=== PATIENT | female | born 1945 | race Caucasian/White ===

== ENCOUNTER 2020-09-01 19:04 | Observation (INO) ==
[2020-09-01 19:55] LABS: Hematocrit 21.8 % (35.3-44.9); Hemoglobin 6.9 g/dL (11.5-15.4); INR 1.3; Mean Corpuscular HGB Conc 31.7 g/dL (31.6-35.5); Mean Corpuscular Hemoglobin 32.4 pg (28.0-33.3); Mean Corpuscular Volume 102.3 fL (83.0-100.0); Mean Platelet Volume 12.8 fL (9.4-12.4); Prothrombin Time 14.6 Seconds (9.4-12.1); Red Blood Count 2.13 M/mcL (3.82-4.97); Red Cell Distribution Width 15.2 % (11.5-14.5); White Blood Count 4.3 K/mcL (4.3-11.1)
[2020-09-01 19:56] LABS: Platelet Count 58 K/mcL (140-400)
[2020-09-01 20:07] LABS: Calcium 7.5 mg/dL (8.6-10.3); Potassium 3.5 mEq/L (3.5-5.1)
[2020-09-01 20:25] LABS: Anisocytosis 2+ (Not Present); Lymphocytes # 0.4 K/mcL (0.6-4.6); Monocytes # 0.5 K/mcL (0.0-1.3); Neutrophils # 3.4 K/mcL (1.6-8.9)
[2020-09-01 20:26] LABS: Basophilic Stippling 1+ (Not Present); Dohle Bodies Present (Not Present); Hypochromasia Present (Not Present); Macrocytosis Present (Not Present); Platelet Estimate Marked Decrease (Normal); Poikilocytosis 1+ (Not Present); Polychromasia 1+ (Not Present); Toxic Granulation Present (Not Present); Toxic Vacuolation Present (Not Present)
[2020-09-01 20:29] LABS: Large Platelets Present (Not Present)
[2020-09-01] MEDS ORDERED: Naloxone 0.4 MG/ML INJ IVP PRN (22:48)
[2020-09-01] MEDS ORDERED: Ondansetron 4 MG/2 ML VIAL IVP PRN (22:48)
[2020-09-01] MEDS ORDERED: Furosemide 20 MG/2 ML VIAL IVP PRN (23:03)
[2020-09-01] MEDS ORDERED: 0.9 % Sodium Chloride 250 ML ONE (23:15)
[2020-09-02] MEDS ORDERED: 0.9 % Sodium Chloride 250 ML ONE (03:30)
[2020-09-02 04:33] LABS: Bilirubin,Urine Negative (Negative); Blood,Urine Trace-lysed (Negative); Clarity,Urine Slightly Cloudy (Clear); Color,Urine Yellow (Yellow); Glucose,Urine (UA) Normal (Normal); Ketones,Urine Negative (Negative); Leukocyte Esterase,Urine Negative (Negative); Nitrite,Urine Negative (Negative); PH,Urine 5.5 pH Units (5.0-8.0); Protein,Urine 100 mg/dL (Neg-Trace); Urobilinogen,Urine Normal (Normal)
[2020-09-02 05:07] LABS: Bacteria,Urine Moderate per hpf (None-Few); Granular Casts,Urine Few per lpf (None Seen); Hyaline Casts,Urine Few per lpf (None Seen); Mucus,Urine Few per lpf (None-Few); RBC,Urine 0-3 per hpf (0-3); WBC,Urine 0-3 per hpf (0-3)
[2020-09-02 05:08] LABS: Amorphous Sediment,Urine Few per hpf (None-Few); Squamous Epithelial Cell,Urine Few per hpf (None-Few)
[2020-09-02] MEDS: Gabapentin 300 MG CAPSULE PO SCH ×2 (07:42→19:41)
[2020-09-02] MEDS: Doxycycline 100 MG CAPSULE PO SCH ×2 (07:42→19:40)
[2020-09-02] MEDS: OMEGA PO SCH (07:43)
[2020-09-02] MEDS: Cholecalciferol (D-3) 1,000 UNIT (25MCG) TABLET PO SCH (07:43)
[2020-09-02] MEDS: FLAXSEED OIL PO SCH (07:43)
[2020-09-02] MEDS: allopurinoL 100 MG TABLET PO SCH (07:43)
[2020-09-02] MEDS ORDERED: *HR* Dextrose 50 % in Water (Vial) 50 ML VIAL IVP PRN (07:53)
[2020-09-02] MEDS ORDERED: Dextrose Gel 15 GM/37.5 ML TUBE PO PRN ×2 (07:53)
[2020-09-02] MEDS ORDERED: D5% in Water 1,000 ML IVC PRN (07:53)
[2020-09-02] MEDS ORDERED: NON-FORMULARY MEDICATION 1 EACH EACH (Insulin Lispro [Humalog Kwikpen U-100] 0 UNIT) SQ SCH (08:00)
[2020-09-02] MEDS ORDERED: Ipratropium/Albuterol Neb 3 ML IH PRN (08:15)
[2020-09-02] MEDS: Furosemide 40 MG TABLET PO SCH ×2 (08:26→17:43)
[2020-09-02] MEDS ORDERED: Furosemide 40 MG TABLET PO SCH (09:00)
[2020-09-02] MEDS ORDERED: *HR* Glimepiride 4 MG TABLET PO SCH (09:00)
[2020-09-02] MEDS ORDERED: *HR* Glimepiride 2 MG TABLET PO SCH (09:00)
[2020-09-02 09:55] LABS: Hematocrit 28.5 % (35.3-44.9); Hemoglobin 9.2 g/dL (11.5-15.4); Mean Corpuscular HGB Conc 32.3 g/dL (31.6-35.5); Mean Corpuscular Hemoglobin 31.3 pg (28.0-33.3); Mean Corpuscular Volume 96.9 fL (83.0-100.0); Mean Platelet Volume 13.2 fL (9.4-12.4); Red Blood Count 2.94 M/mcL (3.82-4.97); Red Cell Distribution Width 18.6 % (11.5-14.5); White Blood Count 8.1 K/mcL (4.3-11.1)
[2020-09-02 09:56] LABS: Platelet Count 77 K/mcL (140-400)
[2020-09-02 10:00] LABS: Calcium 7.7 mg/dL (8.6-10.3); Magnesium 1.4 mg/dL (1.6-2.6); Potassium 3.7 mEq/L (3.5-5.1)
[2020-09-02] MEDS: Budesonide/Formoterol 160/4.5 1 PUFF INH IH SCH ×2 (10:38→20:47)
[2020-09-02] MEDS: Insulin LISPRO 300 UNITS/3 ML VIAL SQ SCH ×2 (13:04→17:43)
[2020-09-02] MEDS ORDERED: Insulin DETEMIR 100 UNIT/ML X5UNITS SQ SCH (21:00)
[2020-09-02] MEDS ORDERED: Insulin LISPRO 300 UNITS/3 ML VIAL SQ SCH (21:00)
[2020-09-02] MEDS ORDERED: Insulin DETEMIR 100 UNIT/ML per UNIT SQ ONE (21:00)
[2020-09-03] MEDS: Insulin LISPRO 300 UNITS/3 ML VIAL SQ SCH ×3 (08:24→17:26)
[2020-09-03] MEDS: Furosemide 40 MG TABLET PO SCH ×2 (08:30→17:26)
[2020-09-03] MEDS: Doxycycline 100 MG CAPSULE PO SCH (08:30)
[2020-09-03] MEDS: allopurinoL 100 MG TABLET PO SCH (08:30)
[2020-09-03] MEDS: Gabapentin 300 MG CAPSULE PO SCH (08:30)
[2020-09-03] MEDS: Cholecalciferol (D-3) 1,000 UNIT (25MCG) TABLET PO SCH (08:30)
[2020-09-03] MEDS: FLAXSEED OIL PO SCH (08:31)
[2020-09-03] MEDS: OMEGA PO SCH (08:31)
[2020-09-03 09:52] LABS: Hematocrit 26.7 % (35.3-44.9); Hemoglobin 8.4 g/dL (11.5-15.4); Mean Corpuscular HGB Conc 31.5 g/dL (31.6-35.5); Mean Corpuscular Volume 98.5 fL (83.0-100.0); Mean Platelet Volume 11.8 fL (9.4-12.4); Red Blood Count 2.71 M/mcL (3.82-4.97); Red Cell Distribution Width 18.6 % (11.5-14.5); White Blood Count 7.8 K/mcL (4.3-11.1)
[2020-09-03 09:53] LABS: Platelet Count 80 K/mcL (140-400)
[2020-09-03 10:07] LABS: Calcium 7.6 mg/dL (8.6-10.3); Potassium 3.4 mEq/L (3.5-5.1)
[2020-09-03] MEDS: Budesonide/Formoterol 160/4.5 1 PUFF INH IH SCH (10:36)
[2020-09-03 19:02] VITALS: BP 118/58
[2020-09-03] MEDS ORDERED: Insulin DETEMIR 100 UNIT/ML X5UNITS SQ SCH (21:00)
== END 2020-09-03 21:50 | disposition home health service (06) ==
LOC: INPPIK 19:04 → EMEROOPIK 19:04 → INPPIK 22:30
PROVIDERS: ADMIT Family Medicine; ATTEND Family Medicine